=== PATIENT | female | born 1985 | race African-American/Black ===

== ENCOUNTER 2020-05-31 10:52 | Outpatient (REF) | payer OTHER, SELFPAY ==
[2020-05-31 13:27] LABS: Hematocrit 38.4 % (37-47); Hemoglobin 12.5 g/dl (12.0-16.0); Mean Corpuscular HGB Conc 32.6 g/dl (31.0-35.0); Mean Corpuscular Hemoglobin 30.5 pg (27.0-33.0); Mean Corpuscular Volume 93.7 fL (80-98); Mean Platelet Volume 10.9 fL (9.4-12.3); Platelet Count 240 X10*3/uL (160-400); Red Cell Distribution Width 12.9 % (11.0-16.0); White Blood Count 5.9 X10*3/uL (4.8-10.8)
[2020-05-31 14:25] LABS: Alanine Aminotransferase 9 U/L (0-31); Albumin Level 4.1 g/dL (3.5-5.0); Alkaline Phosphatase 53 U/L (39-117); Anion Gap 9 (12-20); Aspartate Amino Transferase 14 U/L (5-31); Bilirubin Direct 0.2 mg/dL (0.0-0.5); Bilirubin Total 0.5 mg/dL (0.0-1.0); Blood Urea Nitrogen 14 mg/dL (9-16); Calcium 8.8 mg/dL (8.4-10.2); Carbon Dioxide 28 mmol/L (22-29); Chloride 104 mmol/L (96-108); Cholesterol 204 mg/dL; Estimated Glomerular Filt Rate > 60; Glucose Fasting 92 mg/dL (60-99); HDL Cholesterol 47 mg/dL; LDL Cholesterol Calculated 144 mg/dl; Potassium 4.3 mmol/L (3.3-5.1); Sodium 137 mmol/L (135-145); Total Protein 7.5 g/dL (6.5-8.0); Triglycerides 67 mg/dL
== END 2020-05-31 10:53 | disposition home or self-care (01) ==
LOC: HO.WFDLDS 10:52
PROVIDERS: Visit Provider Hospitalist
DX: Z00.00 Encounter for general adult medical examination without abnormal findings (principal)
CPT/HCPCS: 36415; 80048; 80061; 80076; 84443; 85027

== ENCOUNTER 2022-07-26 09:07 | Outpatient (REF) | payer OTHER, SELFPAY ==
[2022-07-26 11:38] LABS: Hematocrit 38.8 % (37.0-47.0); Hemoglobin 12.8 g/dl (12.0-16.0); Mean Corpuscular Hemoglobin 30.7 pg (27.0-33.0); Mean Platelet Volume 11.1 fL (9.4-12.3); Platelet Count 222 X10*3/uL (160-400); Red Blood Count 4.17 X10*6/uL (4.20-5.50); Red Cell Distribution Width 12.7 % (11.0-16.0); White Blood Count 4.3 X10*3/uL (4.8-10.8)
[2022-07-26 12:08] LABS: Alanine Aminotransferase 10 U/L (0-31); Albumin Level 3.9 g/dL (3.5-5.0); Alkaline Phosphatase 52 U/L (39-117); Anion Gap 8 (12-20); Aspartate Amino Transferase 15 U/L (5-31); Bilirubin Total 0.5 mg/dL (0.0-1.0); Blood Urea Nitrogen 10 mg/dL (9-16); Carbon Dioxide 26 mmol/L (22-29); Chloride 109 mmol/L (96-108); Cholesterol 156 mg/dL; Estimated Glomerular Filt Rate > 60; Glucose Fasting 83 mg/dL (60-99); HDL Cholesterol 42 mg/dL; LDL Cholesterol Calculated 103 mg/dl; Potassium 3.7 mmol/L (3.3-5.1); Sodium 139 mmol/L (135-145); Total Protein 7.4 g/dL (6.5-8.0); Triglycerides 58 mg/dL
[2022-07-26 12:31] LABS: TSH reflex Free T4 0.97 uIU/mL (0.32-4.0)
== END 2022-07-26 09:08 | disposition home or self-care (01) ==
LOC: HO.WFDLDS 09:07
PROVIDERS: Visit Provider Hospitalist
DX: Z00.00 Encounter for general adult medical examination without abnormal findings (principal)
CPT/HCPCS: 36415; 80053; 80061; 84443; 85027

== ENCOUNTER 2022-10-07 08:32 | Outpatient (AMB) | payer OTHER, SELFPAY ==
--- NOTE | 2022-10-07 08:35 | MHC.PC.OV ---
Vital Signs 10/07/22 08:36 Height 5 ft 5 in Weight 167 lb 8 oz BMI 27.9 BP 110/62 Blood Pressure Location Rt brachial Position Sitting Pulse 85 Pulse Source Pulse Oximeter Pulse Oximetry (%) 100 Oxygen Delivery Method Room Air Intake Visit Reasons: Annual PE Intake Note: pt is here for annual exam. patient states she had pap done at [facility], will retrieve. Wildlife Technician Required: No Accompanied by: Self / Same As Patient Allergies Seasonal Allergies Allergy (Verified 10/07/22 08:45) watery eyes, swelling eyes. Medication List - Last Reconciled 10/07/22 by Sushila Palma CNP No Known Home Meds Tobacco use date assessed: 07/25/22 Dental Screening Dental Screen Date: 10/07/22 Did you have a dental visit in the last 12 months?: Yes Did you have a dental problem in the last 6 months where you did not have access to dental care?: No Was dental information given to patient?: Patient has dentist HPI HPI Comments History of Present Illness Details 37-year-old female presents for a complete physical exam No acute symptoms She states that she is followed by [facility] gynecology. She had Pap smear test in April 2022: Negative She notes that she has an appointment with an spool winder tomorrow for complaints of multiple symptoms on her previous visits. She was referred to allergy and immunology. However, she states she was informed they are specialized in allergy not immunology. She request a referral to immunology. 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 Javon Wild, Itzel Marks, Alberto Beaulieu and colleagues, with an educational kari from [employer]. Review of Systems Const Details: Denies chills, Denies fatigue, Denies fever(s), Denies headache(s) and Denies weakness HEENT Denies change in vision, Denies dizziness, Denies headache(s), Denies hearing loss, Denies nasal congestion, Denies sinus pain, Denies sinus pressure and Denies sore throat Card Denies chest pain, Denies lightheadedness, Denies dyspnea and Denies other (palpitations) Resp Denies cough, Denies dyspnea and Denies wheezing GI Denies abdominal pain, Denies melena, Denies hematochezia, Denies change in bowel habits, Denies dyspepsia and Denies nausea Denies hematuria and Denies dysuria Musc Denies abnormal gait, Denies myalgias, Denies arthralgias, Denies numbness and Denies tingling Skin/Breast Denies rash, Denies unusual bruising and Denies wounds Neuro Denies abnormal gait, Denies dizziness, Denies headache(s), Denies memory loss, Denies numbness, Denies Sensory deficit (Neuro), Denies tingling and Denies weakness Psych Denies anxiety, Denies depression and Denies memory loss Endo Denies cold intolerance, Denies fatigue, Denies heat intolerance, Denies polydipsia and Denies polyuria Didier/Lymph Denies easy bleeding and Denies easy bruising Aller/Immun Denies wheezing Physical exam (Primary Care) Vital Signs: Last Vital Signs Pulse 85 10/07/22 08:36 BP 110/62 10/07/22 08:36 Pulse Ox 100 10/07/22 08:36 Oxygen Delivery Method Room Air 10/07/22 08:36 BMI result Body Mass Index 27.9 Tobacco/Smoking Status: Tobacco use Status Tobacco use date assessed 07/25/22 10/07/22 08:36 Patient Tobacco Use Status Never used Tobacco 10/07/22 08:36 e-Cigarette/Vaping Use Never Used 10/07/22 08:36 Thrive Assessment: Date of Thrive Assessment Date Thrive assessed 07/25/22 10/07/22 08:36 Const Other: General: no acute distress, well developed, alert and awake Nutritional Appearance: well nourished Orientation/consciousness: patient oriented x3 HENMT Head: Yes normocephalic and Yes atraumatic Ears: hearing grossly normal bilaterally and TM's normal bilaterally General nose exam: Normal external nose present and Normal nares present Mouth: Normal oral and palatal mucosa present and moist mucous membranes Teeth and gingiva: dentition normal Throat: Yes oropharynx normal Eyes Pupils: Equal, round and reactive pupils present and Pupil accommodation reflex normal EOM: EOMs intact bilaterally Neck Neck: Yes normal visual inspection, Yes no lymphadenopathy and Yes trachea midline Thyroid: Thyroid normal Carotids: no bruits Lymphatic: no lymphadenopathy noted Chest Chest palpation & inspection: normal inspection of the chest Resp Effort & Inspection: normal respiratory effort Auscultation: clear to auscultation bilaterally Cardio Rate: regular rate Rhythm: regular rhythm Heart sounds: S1 normal heart sound present, S2 normal heart sound present, no gallops, no murmurs and no rubs Bruits: no abdominal aortic bruits and no carotid bruits GI Palpation (GI): No Abdominal aortic bruit present, Soft to palpation, nontender, No hepatosplenomegaly present and No Rebound tenderness present Auscultation: normal bowel sounds General: Yes no CVA tenderness Back/Spine/Pelvis Back: no CVA tenderness Cervical Spine: cervical ROM normal and No Cervical spine tenderness Thoracic/Lumbar Spine: thoraco-lumbar ROM normal, No pain with thoraco-lumbar ROM, No thoracic spinal tenderness and No lumbar spinal tenderness Skin General: warm and dry. Normal skin color. Normal skin turgor Lesions: no lesions Rashes: no rashes Trauma: no lacerations or abrasions Wounds: no wounds Nails: normal Neuro General: patient oriented x3, gait normal and CN's II-XI intact bilaterally Cranial nerves: Yes Equal, round and reactive pupils present Cognition (Neuro): normal cognition Gait exam (Neuro): Normal gait present Motor exam (neuro): 5/5 motor strength present throughout Sensory Exam: No Sensory deficit (Neuro) Deep tendon reflexes (DTR's): Right patellar reflex intensity grade: 2+ and Left patellar reflex intensity grade: 2+ Extrem General: Yes normal to inspection, No edema and No calf tenderness Psych Appearance: grossly normal Affect: normal affect Attitude: cooperative Thought process: Normal thought process present Assessment and Plan Assessment & Plan (1) Normal physical exam: Code(s): Z00.00 - Encounter for general adult medical examination without abnormal findings Plan: Normal physical exam of a 37-year-old female No significant physical restrictions or limitations noted Recent lab results her within normal limits Referred to Dr. Leo, allergy and immunology Advised to schedule her next physical for a year from today Return sooner with symptoms or concerns Verbalized understanding and agreed with treatment plan Orders: Referrals Allergy & Immunology Referral J06.9 - Acute upper respiratory infection, unspecified Coding Level of Care Code Est Pt Prev Care 18-39y(77329) Diagnoses Normal physical exam Z00.00
[2022-10-07 08:36] VITALS: BP 110/62; PULSE 85; O2SAT 100; BMI 27.9
== END 2022-10-07 08:57 | disposition home or self-care (01) ==
PROVIDERS: PCP Nurse Practitioner Family; Visit Provider Nurse Practitioner Family
DX: Z00.00 Encounter for general adult medical examination without abnormal findings (principal)
CPT/HCPCS: 99395

== ENCOUNTER 2022-10-22 10:53 | Outpatient (REF) | payer OTHER, SELFPAY | END 2022-10-22 10:54 | disposition home or self-care (01) | LOC: HO.LAB 10:53 | PROVIDERS: PCP Hospitalist; Visit Provider Otolaryngology | DX: J30.89 Other allergic rhinitis (principal) | CPT/HCPCS: 36415; 82785; 86003 ==

== ENCOUNTER 2023-12-01 13:48 | Outpatient (AMB) | payer OTHER, SELFPAY ==
--- NOTE | 2023-12-01 13:51 | MHC.PC.OV ---
Vital Signs 12/01/23 13:53 Height 5 ft 5 in Weight 179 lb BMI 29.8 BP 106/78 Blood Pressure Location Lt brachial Position Sitting Pulse 82 Pulse Source Pulse Oximeter Pulse Oximetry (%) 99 Oxygen Delivery Method Room Air Intake Visit Reasons: Follow up Intake Note: Pt is here today for a follow up visit to establish care from [facility]. Allergies Seasonal Allergies Allergy (Verified 12/01/23 14:00) watery eyes, swelling eyes. Tobacco use date assessed: 12/01/23 Dental Screening Dental Screen Date: 12/01/23 Did you have a dental visit in the last 12 months?: Yes Did you have a dental problem in the last 6 months where you did not have access to dental care?: No Was dental information given to patient?: Patient has dentist HPI HPI Comments History of Present Illness Details Pt presents for PE. PFSH Surgical History No pertinent past surgical history Family History Maternal Grandmother Diabetes Father No problems noted. Mother No problems noted. 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 1. Little interest or pleasure in doing things: not at all 2. Feeling down, depressed, or hopeless: not at all 3. Trouble falling or staying asleep, or sleeping too much: not at all 4. Feeling tired or having little energy: nearly every day 5. Poor appetite or overeating: not at all 6. Feeling bad about yourself - or that you are a failure or have let yourself or your family down: not at all 7. Trouble concentrating on things, such as reading the newspaper or watching television: not at all 8. Moving or speaking so slowly that other people could have noticed. Or the opposite - being so fidgety or restless that you have been moving around a lot more than usual: not at all 9. Thoughts that you would be better off or of hurting yourself in some way: not at all Total score: 3 Depression Screening Interpretation: Negative Depression Screening Done: Yes 39995 - PHQ-9 Billing: Yes Source: Developed by Drs. Javon Wild, Itzel Marks, Alberto Beaulieu and colleagues, with an educational kari from [employer]. Thrive Questionnaire Date Thrive assessed: 12/01/23 I am a: Patient What is your living situation today?: I have a steady place to live Within the past 12 months, did the food you bought not last and you didn't have the money to get more?: Never true Within the past 12 months, did you worry whether your food would run out before you got money to buy more?: Never true Do you have trouble paying for medicines?: No Do you have trouble getting transportation to medical appointments?: No Do you have trouble paying your heating and electricity bill?: No Do you have trouble taking care of your child, family member or friend?: No Do you have trouble with day-to-day activities such as bathing, preparing meals, shopping, managing finances, etc.?: No Are you currently unemployed and looking for a job?: No Are you interested in more education?: No Please select the resources that you would like help with: None THRIVE Score: 0 AUDIT C Alcohol Use Questionnaire (AUDIT-C) 1. How often do you have a drink containing alcohol?: Never 3. How often do you have six or more drinks on one occasion?: Never Total Score: 0 HECTOR-7 AMB Questionnaire HECTOR-7 Date HECTOR - 7 assessed: 12/01/23 Feeling nervous, anxious, or on edge: 0 = Not at all Not being able to stop or control worryin = Not at all Worrying too much about different things: 0 = Not at all Trouble relaxin = Not at all Being so restless that it is hard to sit still: 0 = Not at all Becoming easily annoyed or irritable: 0 = Not at all Feeling afraid as if something awful might happen: 0 = Not at all Total HECTOR-7 score (0-4 normal; 5-9 mild; 10-14 moderate; 15-21 severe): 0 Source: Developed by Drs. Javon Wild, Itzel Marks, Alberto Beaulieu and colleagues, with an educational kari from [employer]. HECTOR-7 Assessment Billing HECTOR-7 Assessment Tool: HECTOR-7 Assessment 57224 Review of Systems Const All systems reviewed & are unremarkable except as noted in HPI and below Reports no additional complaints Eyes Reports no additional complaints ENT Reports no additional complaints Card Reports no additional complaints Resp Reports no additional complaints GI Reports no additional complaints Reports no additional complaints Physical exam (Primary Care) Vital Signs: Last Vital Signs Pulse 82 12/01/23 13:53 BP 106/78 12/01/23 13:53 Pulse Ox 99 12/01/23 13:53 Oxygen Delivery Method Room Air 12/01/23 13:53 BMI result Body Mass Index 29.8 Tobacco/Smoking Status: Tobacco use Status Tobacco use date assessed 12/01/23 12/01/23 14:04 Patient Tobacco Use Status Never used Tobacco 12/01/23 14:04 e-Cigarette/Vaping Use Never Used 12/01/23 13:51 PHQ-9: PHQ-9 Score PHQ-9: Total score 3 12/01/23 14:04 Depression Screening Interpretation: Negative Thrive Assessment: Date of Thrive Assessment Date Thrive assessed 12/01/23 12/01/23 14:04 Const General: no acute distress HENMT Head: Yes normal to inspection Ears: hearing grossly normal bilaterally Throat: Yes posterior oropharynx normal Eyes General: appearance normal, both eyes and all related structures Neck Neck: Yes no lymphadenopathy and Yes supple Resp Effort & Inspection: normal respiratory effort Auscultation: clear to auscultation bilaterally Cardio Rhythm: regular rhythm Heart sounds: S1 normal heart sound present and S2 normal heart sound present GI Inspection: Yes normal to inspection Palpation (GI): Soft to palpation Percussion: Yes normal to percussion Auscultation: normal bowel sounds Assessment and Plan Assessment & Plan (1) Seasonal allergies: Comment: getting immunotherapy Code(s): J30.2 - Other seasonal allergic rhinitis 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 Panel Fast Today Z00.00 - Encounter for general adult medical examination without abnormal findings, Z01.419 - Encounter for gynecological examination (general) (routine) without abnormal findings Lipid Panel Today Z00.00 - Encounter for general adult medical examination without abnormal findings, Z01.419 - Encounter for gynecological examination (general) (routine) without abnormal findings TSH reflex Free T4 Today Z00.00 - Encounter for general adult medical examination without abnormal findings, Z01.419 - Encounter for gynecological examination (general) (routine) without abnormal findings UA w Microscopic Today Z00.00 - Encounter for general adult medical examination without abnormal findings, Z01.419 - Encounter for gynecological examination (general) (routine) without abnormal findings Complete Blood Count Auto Diff Today Z00.00 - Encounter for general adult medical examination without abnormal findings, Z01.419 - Encounter for gynecological examination (general) (routine) without abnormal findings Coding Level of Care Code Est Pt Prev Care 18-39y(54753) Diagnoses Seasonal allergies J30.2 Normal physical exam Z00.00 Well adult exam Z00.00 Normal pelvic exam Z01.419 Additional Codes HECTOR-7 Assessment Billing - HECTOR-7 Assessment Tool: HECTOR-7 Assessment 46878 ([id number])
[2023-12-01 13:53] VITALS: BP 106/78; PULSE 82; O2SAT 99; BMI 29.8
== END 2023-12-01 14:35 | disposition home or self-care (01) ==
PROVIDERS: PCP Hospitalist; Visit Provider Internal Medicine
DX: J30.2 Other seasonal allergic rhinitis (principal); Z00.00 Encounter for general adult medical examination without abnormal findings; Z01.419 Encounter for gynecological examination (general) (routine) without abnormal findings

== ENCOUNTER → 2023-12-01 13:48 | Outpatient (BNVA) | payer OTHER, SELFPAY | PROVIDERS: PCP Hospitalist; Visit Provider Internal Medicine | DX: Z00.00 Encounter for general adult medical examination without abnormal findings (principal); J30.2 Other seasonal allergic rhinitis | CPT/HCPCS: 96127; 99395 ==

== ENCOUNTER 2025-03-01 12:14 | Outpatient (AMB) | payer OTHER, SELFPAY ==
[2025-03-01 12:24] VITALS: BP 116/74; PULSE 73; TEMP 36.9; O2SAT 99; BMI 30.3
--- NOTE | 2025-03-01 12:24 | AM.OFFWIN_ITS ---
Intake Vital Signs 03/01/25 12:24 Height 5 ft 5 in Weight 182 lb BMI 30.3 BP 116/74 Blood Pressure Location Lt brachial Position Sitting Pulse 73 Pulse Source Pulse Oximeter Temp 98.4 F Temp Source Oral Pulse Oximetry (%) 99 Oxygen Delivery Method Room Air Intake Visit Reasons: EP right thumb swollen Intake Note: pt presents with RT thumb pain and swelling that developed a couple hours after her 1st Dupixent injection on friday Patient Tobacco Use Status: Never used Tobacco Allergies Seasonal Allergies Allergy (Verified 03/01/25 12:27) watery eyes, swelling eyes. Do you need a note to return to daycare/school/sports/work: Yes HPI HPI Comments History of Present Illness Details History of Present Illness - The patient is a 39-year-old female pr esenting with a painful and swollen thumb. - She has a history of stage 2 allergies and eczema, for which she was recently started on Dupixent after her eczema became uncontrolled at the end of a prior treatment plan. - Her symptoms began 4 days ago, a coupl e of hours after receiving her Dupixent injection, when her thumb started to swell. - The swelling worsened over the next fe w days - The patient applied Neosporin, which p rovided minimal relief. - She spoke with a PA yesterday who lori mmended Motrin, but it was not effective. 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 - The school nurse observed the thumb an d suggested it may be pus-filled. - The patient denies any pain in the maritza mb joint itself and reports maintaining a full range of motion. Review of Systems - Integumentary: Reports swelling and sh margaret pain in her thumb. - Allergic/Immunologic: Reports history of stage 2 allergies and eczema. - Musculoskeletal: Denies joint pain but reports tenderness to touch on the thumb. All systems reviewed and are unremarkable except as noted in HPI Physical Exam General: Cooperative, healthy appearing, comfortable, no acute distress and well developed Orientation: Patient oriented x3 Limitations: No limitations Head: Normal to inspection Ears: Hearing grossly normal bilaterally Nose: Normal External nose present Face and sinus: Normal facial exam Eyes: Appearance normal, both eyes and all related structures Neck: Normal visual inspection and Yes full ROM Respiratory: Normal respiratory effort and able to speak in complete sentences. Skin: no lesions or rashes noted. Neuro: Patient oriented x3 Extremities: right thumb, no TTP MCP or DIP, slight edema to lateral nail bed with edema and white noted under edges of the skin. NIV, full range of motion. [facility], [facility] Medical History (Updated 03/01/25 @ 12:55 by Bev Herrera PA-C) Paronychia of finger of right hand Paronychia of finger of left hand Surgical History No pertinent past surgical history Family History Maternal Grandmother Diabetes Father No problems noted. Mother No problems noted. 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 Current occupational exposures/hazards: No Cognitive needs: No Hearing needs: No Vision needs: No Physical Exam Vital Signs: Last Vital Signs Temp 98.4 F 03/01/25 12:24 Pulse 73 03/01/25 12:24 BP 116/74 03/01/25 12:24 Pulse Ox 99 03/01/25 12:24 Oxygen Delivery Method Room Air 03/01/25 12:24 BMI result Body Mass Index 30.3 Office Procedures AMB Incision and Drain Details: sprayed Aspercreme without much numbing effect, cleaned area with Betadine, using #11 blade made a 0.5cm incision with 2cc's of purulent exudate, applied bacitracin and band-aid 23038-Mmimjbyd of Skin Abscess, simple All charges added?: Procedure code (CPT) selection complete Office Meds Triple Antibiotic 3.5 mg-400 unit-5,000 unit topical ointment packet Performing Provider: Bev Herrera PA-C Performing Location: [facility] Administered by: Bev Herrera PA-C on 03/01/25 12:58 Dose Route Admin Location Dispensed Lot Number Expiration Date [employer] Hr Shared Services Consultant 1 appl topical 1 ea povidone-iodine 10 % topical ointment Performing Provider: Bev Herrera PA-C Performing Location: [facility] Administered by: Bev Herrera PA-C on 03/01/25 12:58 Dose Route Admin Location Dispensed Lot Number Expiration Date [facility] Hr Shared Services Consultant 1 appl topical 1 g Assessment & Plan Assessment & Plan (1) Paronychia of finger of right hand: Code(s): L03.011 - Cellulitis of right finger Plan: Patient was informed and verbally consented to the use of an ambient scribe for clinic note documentation during this visit. - The patient's thumb swelling and pain is diagnosed as a paronychia, an infection of the nail bed, rather than a side effect of her recent Dupixent injection. - An incision and drainage (I&D) procedure was performed in-office. - The patient was instructed to soak her thumb in warm water with Epsom salts several times a day to promote continuous drainage. - A prescription for doxycycline was sent to her pharmacy as a contingency. - She should only fill and take the antibiotic if the infection does not improve within a day or two with soaking. - The patient was advised to keep the area clean and covered with a bandage in public to prevent further infection. Orders: Orders AMB Incision & Drainage Today L03.011 - Cellulitis of right finger Medications: New doxycycline hyclate 100 mg PO BID 14 tabs 0RF Coding Level of Care Code New Pt Level 3 (73530) Diagnoses Paronychia of finger of right hand L03.011 CPT Codes I&D Drain - Drain 1: 49301-Dvpzdvvy of Skin Abscess, simple ([id number])
--- OUTSIDE RECORDS SUMMARY | 2025-03-01 16:03 | XMS_ITS | Clinical Summary ---
Author Organization [facility] Address [address] [place] [id number] Phone Care Team Providers Care Drosophere Operator Name Role Phone Otilia Monteiro Unavailable [phone] Marcia Yee MD Primary Care Provider [phone] Allergies No known active allergies Medications No known medications Social History Tobacco Use Types Packs/Day Years Used Date Smoking Tobacco: Never Smokeless Tobacco: Never Education Answer Date Recorded Are you interested in more education? Not on [email or web address] e 07/12/2022 Are you concerned about learning? Not on file 07/12/2022 No 07/12/2022 No 07/12/2022 Digital Access Answer Date Recorded No 08/10/2022 No 08/10/2022 Reliable internet access at home? Not on file 08/10/2022 Device with a working camera? Not on file Comments Unknown Sex and Gender Information Value Date Recorded Sex Assigned at Not on file Legal Sex Female 1:46 PM EDT Gender Identity Not on file Sexual Orientation Not on file Last Filed Vital Signs Vital Sign Reading Time Taken Comments Blood Pressure 112/68 10/15/2019 2:35 PM EDT Pulse 97 10/15/2019 2:35 PM EDT Temperature 37.1 C (98.7 F) 10/15/2019 2:35 PM EDT Respiratory Rate - - Oxygen Saturation 98% 10/15/2019 2:35 PM EDT Inhaled Oxygen Concentration - - Weight 76.2 kg (168 lb) 10/15/2019 2:35 PM EDT Height 165.1 cm (5' 5 ) 10/15/2019 2:35 PM EDT Body Mass Index 27.96 10/15/2019 2:35 PM EDT Plan of Treatment Health Maintenance Due Date Last Done Comments DEPRESSION SCREENING 1997 HEPATITIS C SCREENING 2003 HIV ONE-TIME SCREENING (18-6 5 YEARS) 2003 PAP SMEAR 2006 Adult Td,Tdap Booster 12/07/2023 12/06/2013 INFLUENZA VACCINE (#1) 2024 COVID-19 VACCINE (2024-2 6 season) 2024 SMOKING STATUS SCREENING (On ce After 26 Yrs) Completed 10/22/2019 HEPATITIS A VACCINES Aged Out No long er eligible based on patient's age to complete this topic HIB VACCINES Aged Out No longer eligi ble based on patient's age to complete this topic MENINGOCOCCAL VACCINES (ACWY) Aged Out No longer eligible based on patient's age to complete this topic MENINGOCOCCAL VACCINES (B) Aged Out N o longer eligible based on patient's age to complete this topic PNEUMOCOCCAL VACCINES (0-49 years) Aged Out No longer eligible based on patient's age to complete this topic Medical Devices Not on file Insurance [facility] [employer] [employer] [facility] [employer] [facility] CONNECTORCARE [facility] CONNECTOR[facility]ARE [facility]CTOR[facility]ARE [facility] DIRECT [facility] CONNECTORCARE DIRECT [facility] CONNECTORCARE DIRECT Care Teams Drosophere Operator Relationship Specialty Start Date End Date Marcia Yee MD [address] [place] [address] PCP - General Internal Medicine 10/15/19 Otilia Monteiro PA [address] [place] [id number] [email or web address] 10/14/19 Additional Source Comments The information contained in this document represents components of the legal health record. It is not the complete legal health record[facility]
== END 2025-03-01 12:50 | disposition home or self-care (01) ==
PROVIDERS: Visit Provider Physician Assistant
DX: L03.011 Cellulitis of right finger (principal)

== ENCOUNTER → 2025-03-01 12:14 | Outpatient (BNVA) | payer OTHER, SELFPAY | PROVIDERS: Visit Provider Physician Assistant | DX: L03.011 Cellulitis of right finger (principal); L30.9 Dermatitis, unspecified | CPT/HCPCS: 10060; 99202 ==